=== PATIENT | male | born 1935 | race Caucasian/White ===

== ENCOUNTER 2020-07-22 17:25 | Inpatient (IN) ==
[2020-07-22 17:53] LABS: ABS Basophils 0.1 10^3/ul (0-0.2); ABS Eosinophils 0.2 10^3/ul (0-0.6); ABS Lymphocytes 1.5 10^3/ul (1.0-4.8); ABS Monocytes 0.6 10^3/ul (0-0.8); ABS Neutrophils 3.4 10^3/ul (1.5-7.7); Eosinophil % 2.8 %; Hematocrit 44 % (42-52); Hemoglobin 14.6 g/dL (14.0-18.0); Lymphocyte % 26.6 %; Mean Corpuscular HGB Conc 34 g/dL (31-36); Mean Corpuscular Hemoglobin 33 pg (27-31); Mean Corpuscular Volume 98 fL (80-94); Mean Platelet Volume 9.6 fL (7.4-10.4); Platelet Count 195 10^3/uL (150-450); Red Blood Count 4.44 10^6 /uL (4.18-5.48); Red Cell Distribution Width 14 % (10-15); White Blood Count 5.8 10^3/uL (3.5-10.8)
[2020-07-22 17:59] LABS: Urine Bilirubin Negative (Negative); Urine Blood Negative (Negative); Urine Glucose Negative (Negative); Urine Nitrite Negative (Negative)
[2020-07-22 18:00] LABS: Urine Appearance Clear; Urine Color Yellow; Urine Ketones Negative (Negative); Urine Protein Negative (Negative); Urine Urobilinogen Negative (Negative)
[2020-07-22 18:11] LABS: ALT < 3 U/L (7-52); AST 11 U/L (13-39); Albumin 4.7 g/dL (3.2-5.2); Alkaline Phosphatase 69 U/L (34-104); Anion Gap 8 mmol/L (2-11); BUN/Creatinine Ratio 25.7 (8-20); Blood Urea Nitrogen 18 mg/dL (6-24); C Reactive Protein < 1.00 mg/L (<8.01); CO2 Carbon Dioxide 27 mmol/L (22-32); Calcium 10.1 mg/dL (8.6-10.3); Chloride 104 mmol/L (101-111); EGFR African American 129.7 (>60); EGFR Non-African American 107.2 (>60); Globulin 2.4 g/dL (2-4); Glucose 101 mg/dL (70-100); Magnesium 2.2 mg/dL (1.9-2.7); Potassium 4.1 mmol/L (3.5-5.0); Sodium 139 mmol/L (135-145); Total Protein 7.1 g/dL (6.4-8.9)
[2020-07-22 18:12] LABS: Urine Benzodiazepine Screen None Detected (None Detect); Urine Opiates Screen None Detected (None Detect)
[2020-07-22 18:41] LABS: Alcohol, S < 10 mg/dL (<10)
[2020-07-22 19:45] LABS: Urine Cannabinoids Screen None Detected (None Detect)
[2020-07-22 21:00] LABS: TSH Ultra Thyroid Stim Horm 0.59 mcIU/mL (0.34-5.60)
[2020-07-22] MEDS: Heparin 5000 UNITS/ML 1 mL VIAL SUBCUT SCH ×2 (21:49→22:24)
[2020-07-22] MEDS: Carbidopa/Levodop CR 50/200 TAB.CR PO SCH (21:57)
[2020-07-22] MEDS: Carbidopa/Levodop 25/100 MG TAB PO SCH (22:17)
[2020-07-23 06:09] LABS: ABS Basophils 0.1 10^3/ul (0-0.2); ABS Eosinophils 0.1 10^3/ul (0-0.6); ABS Lymphocytes 1.1 10^3/ul (1.0-4.8); ABS Monocytes 0.6 10^3/ul (0-0.8); ABS Neutrophils 3.9 10^3/ul (1.5-7.7); Hematocrit 41 % (42-52); Lymphocyte % 18.8 %; Mean Corpuscular HGB Conc 34 g/dL (31-36); Mean Corpuscular Hemoglobin 33 pg (27-31); Mean Corpuscular Volume 99 fL (80-94); Mean Platelet Volume 9.1 fL (7.4-10.4); Platelet Count 182 10^3/uL (150-450); Red Cell Distribution Width 14 % (10-15); White Blood Count 5.8 10^3/uL (3.5-10.8)
[2020-07-23 06:31] LABS: ALT < 3 U/L (7-52); AST 10 U/L (13-39); Albumin/Globulin Ratio 1.8 (1-3); Alkaline Phosphatase 65 U/L (34-104); Anion Gap 6 mmol/L (2-11); BUN/Creatinine Ratio 28.1 (8-20); Blood Urea Nitrogen 18 mg/dL (6-24); CO2 Carbon Dioxide 28 mmol/L (22-32); Calcium 9.2 mg/dL (8.6-10.3); Chloride 107 mmol/L (101-111); EGFR African American 143.8 (>60); EGFR Non-African American 118.9 (>60); Globulin 2.2 g/dL (2-4); Glucose 97 mg/dL (70-100); Potassium 4.2 mmol/L (3.5-5.0); Sodium 141 mmol/L (135-145); Total Protein 6.2 g/dL (6.4-8.9)
[2020-07-23] MEDS: Heparin 5000 UNITS/ML 1 mL VIAL SUBCUT SCH ×2 (06:31→13:14)
[2020-07-23] MEDS: Carbidopa/Levodop CR 50/200 TAB.CR PO SCH ×5 (06:31→21:49)
[2020-07-23] MEDS: Carbidopa/Levodop 25/100 MG TAB PO SCH ×5 (06:32→21:49)
[2020-07-23] MEDS: Aspirin EC 81 mg TAB.EC (enteric coated) PO SCH (08:10)
[2020-07-23] MEDS: Enoxaparin 40 MG/0.4 ML SYR SUBCUT SCH (21:37)
[2020-07-24] MEDS: Carbidopa/Levodop CR 50/200 TAB.CR PO SCH ×5 (06:07→21:22)
[2020-07-24] MEDS: Carbidopa/Levodop 25/100 MG TAB PO SCH ×5 (06:08→21:22)
[2020-07-24 07:04] LABS: HDL Cholesterol 51.4 mg/dL
[2020-07-24] MEDS: Aspirin EC 81 mg TAB.EC (enteric coated) PO SCH (08:10)
[2020-07-24 09:37] LABS: Calcium 9.2 mg/dL (8.6-10.3); Potassium 4.2 mmol/L (3.5-5.0)
[2020-07-24 09:42] LABS: EGFR African American 129.7 (>60); EGFR Non-African American 107.2 (>60)
[2020-07-24 10:51] LABS: ABS Basophils 0.1 10^3/ul (0-0.2); ABS Eosinophils 0.2 10^3/ul (0-0.6); ABS Lymphocytes 1.9 10^3/ul (1.0-4.8); ABS Monocytes 0.7 10^3/ul (0-0.8); ABS Neutrophils 3.2 10^3/ul (1.5-7.7); Eosinophil % 3.3 %; Hematocrit 41 % (42-52); Hemoglobin 13.7 g/dL (14.0-18.0); Lymphocyte % 30.6 %; Mean Corpuscular HGB Conc 33 g/dL (31-36); Mean Corpuscular Hemoglobin 33 pg (27-31); Mean Corpuscular Volume 99 fL (80-94); Mean Platelet Volume 9.8 fL (7.4-10.4); Platelet Count 175 10^3/uL (150-450); Red Blood Count 4.16 10^6 /uL (4.18-5.48); Red Cell Distribution Width 14 % (10-15)
[2020-07-24] MEDS: Enoxaparin 40 MG/0.4 ML SYR SUBCUT SCH (21:22)
[2020-07-25] MEDS: Carbidopa/Levodop CR 50/200 TAB.CR PO SCH ×5 (06:21→20:57)
[2020-07-25] MEDS: Carbidopa/Levodop 25/100 MG TAB PO SCH ×5 (06:21→20:56)
[2020-07-25] MEDS: Aspirin EC 81 mg TAB.EC (enteric coated) PO SCH (09:56)
[2020-07-25] MEDS: CALCIPOTRIENE TOPICAL SCH ×2 (20:57→21:30)
[2020-07-25] MEDS: Enoxaparin 40 MG/0.4 ML SYR SUBCUT SCH (20:57)
[2020-07-26] MEDS: Carbidopa/Levodop 25/100 MG TAB PO SCH ×5 (06:36→21:21)
[2020-07-26] MEDS: Carbidopa/Levodop CR 50/200 TAB.CR PO SCH ×5 (06:36→21:19)
[2020-07-26] MEDS: Aspirin EC 81 mg TAB.EC (enteric coated) PO SCH (09:23)
[2020-07-26] MEDS: CALCIPOTRIENE TOPICAL SCH ×2 (10:35→21:31)
[2020-07-26] MEDS: Enoxaparin 40 MG/0.4 ML SYR SUBCUT SCH (21:27)
[2020-07-27] MEDS: Carbidopa/Levodop 25/100 MG TAB PO SCH ×5 (06:30→23:01)
[2020-07-27] MEDS: Carbidopa/Levodop CR 50/200 TAB.CR PO SCH ×5 (06:30→22:09)
[2020-07-27] MEDS: Aspirin EC 81 mg TAB.EC (enteric coated) PO SCH (08:48)
[2020-07-27] MEDS: CALCIPOTRIENE TOPICAL SCH ×2 (08:55→22:12)
[2020-07-27] MEDS: Enoxaparin 40 MG/0.4 ML SYR SUBCUT SCH (22:16)
[2020-07-28] MEDS: Carbidopa/Levodop CR 50/200 TAB.CR PO SCH ×5 (06:30→21:43)
[2020-07-28] MEDS: Carbidopa/Levodop 25/100 MG TAB PO SCH ×5 (06:30→21:43)
[2020-07-28] MEDS: CALCIPOTRIENE TOPICAL SCH ×2 (09:22→21:44)
[2020-07-28] MEDS: Aspirin EC 81 mg TAB.EC (enteric coated) PO SCH (09:22)
[2020-07-28] MEDS: Enoxaparin 40 MG/0.4 ML SYR SUBCUT SCH (21:44)
[2020-07-29 04:27] LABS: ABS Eosinophils 0.2 10^3/ul (0-0.6); ABS Lymphocytes 1.1 10^3/ul (1.0-4.8); ABS Monocytes 0.6 10^3/ul (0-0.8); ABS Neutrophils 3.8 10^3/ul (1.5-7.7); Eosinophil % 3.8 %; Hematocrit 42 % (42-52); Hemoglobin 13.9 g/dL (14.0-18.0); Lymphocyte % 19.4 %; Mean Corpuscular HGB Conc 33 g/dL (31-36); Mean Corpuscular Hemoglobin 33 pg (27-31); Mean Corpuscular Volume 99 fL (80-94); Mean Platelet Volume 10.1 fL (7.4-10.4); Platelet Count 157 10^3/uL (150-450); Red Blood Count 4.21 10^6 /uL (4.18-5.48); Red Cell Distribution Width 14 % (10-15); White Blood Count 5.7 10^3/uL (3.5-10.8)
[2020-07-29] MEDS: Carbidopa/Levodop CR 50/200 TAB.CR PO SCH ×5 (05:28→23:10)
[2020-07-29] MEDS: Carbidopa/Levodop 25/100 MG TAB PO SCH ×5 (05:28→22:44)
[2020-07-29] MEDS: CALCIPOTRIENE TOPICAL SCH ×2 (08:39→20:12)
[2020-07-29] MEDS: Aspirin EC 81 mg TAB.EC (enteric coated) PO SCH (08:39)
[2020-07-29] MEDS: Enoxaparin 40 MG/0.4 ML SYR SUBCUT SCH (22:44)
[2020-07-30] MEDS: Carbidopa/Levodop 25/100 MG TAB PO SCH ×5 (05:46→22:55)
[2020-07-30] MEDS: Carbidopa/Levodop CR 50/200 TAB.CR PO SCH ×5 (05:46→22:56)
[2020-07-30] MEDS: Aspirin EC 81 mg TAB.EC (enteric coated) PO SCH (08:53)
[2020-07-30] MEDS: CALCIPOTRIENE TOPICAL SCH ×2 (08:54→23:02)
[2020-07-30] MEDS: Enoxaparin 40 MG/0.4 ML SYR SUBCUT SCH (22:56)
[2020-07-31] MEDS: Carbidopa/Levodop CR 50/200 TAB.CR PO SCH ×3 (06:25→14:12)
[2020-07-31] MEDS: Carbidopa/Levodop 25/100 MG TAB PO SCH ×3 (06:26→14:12)
[2020-07-31] MEDS: Aspirin EC 81 mg TAB.EC (enteric coated) PO SCH (08:44)
[2020-07-31] MEDS: CALCIPOTRIENE TOPICAL SCH (08:44)
[2020-07-31 15:28] VITALS: BP 112/57
== END 2020-07-31 17:40 | DRG 57 ==
LOC: ED 17:25 → SSU 17:25
PROVIDERS: ADMIT Internal Medicine; ATTEND Pediatrics